=== PATIENT | male | born 1965 | race Caucasian/White ===

== ENCOUNTER 2018-06-17 08:01 | Outpatient (CLI) | payer OTHER, SELFPAY ==
[2018-06-17 08:37] LABS: Absolute Basophil Count 0.02 k/cumm (0.0-0.2); Absolute Eosinophil Count 0.07 k/cumm (0.0-0.7); Absolute Lymphocyte Count 1.02 k/cumm (1.2-3.4); Absolute Monocyte Count 0.33 k/cumm (0.11-0.7); Absolute Neutrophil Count 3.55 k/cumm (1.2-6.7); Basophils % 0.4; Eosinophils % 1.4; HCT 44.5 % (40.0-50.0); HGB 16.1 g/dL (13.5-17.5); Lymphocytes % 20.4; Mean Corp. HGB Concentration 36.2 g/dL (32.0-36.0); Mean Corpuscular Hemoglobin 33.1 pg (27.0-33.0); Mean Corpuscular Volume 91.6 fL (80-95); Mean Platelet Volume 9.1 fL (8.0-11.0); Monocytes % 6.6; Neutrophils % 71.2; Platelet Count 229 x1000/uL (130-400); RBC 4.86 m/cumm (4.50-6.00); RBC Distribution Width 12.1 % (11.8-14.1); White Blood Cell Count 4.99 k/cumm (4.4-10.8)
[2018-06-17 08:51] LABS: Hemoglobin A1C 5.1 % (4.5-6.2)
[2018-06-17 09:50] LABS: Iron 158 ug/dL (50-175)
[2018-06-17 10:19] LABS: ALT 25 U/L (12-78); AST 25 U/L (15-37); Alkaline Phosphatase 59 U/L (46-116); Anion Gap 7.1 mmol/L (3-11); BUN 20 mg/dL (7-18); Bilirubin, Total 0.8 mg/dL (0.2-1.0); CO2 29.9 mmol/L (21.0-32.0); CREATININE 1.24 mg/dL (0.70-1.30); Calcium 9.1 mg/dL (8.5-10.1); Chloride 105 mmol/L (98-107); Cholesterol 206 mg/dL (50-200); Glucose 92 mg/dL (70-100); HDL Cholesterol 46 mg/dL (40-60); LDL CHOLESTEROL 150 mg/dL (<100); Potassium 4.4 mmol/L (3.5-5.1); Sodium 142 mmol/L (136-145); TSH 2.86 uIU/mL (0.358-3.74); Total Protein 6.7 g/dL (6.4-8.2); Triglyceride 54 mg/dL (30-150); Vitamin B12 630 pg/mL (193-986)
[2018-06-18 03:20] LABS: CRP, High Sensitivity <0.10 mg/L
[2018-06-18 09:18] LABS: PSA, Screening 0.6 ng/ml (0-3.5)
[2018-06-18 09:43] LABS: Rheumatoid Factor <8 IU/mL (<12.5)
[2018-06-18 11:21] LABS: Homocysteine 12.9 umol/L (4.5-12.4)
[2018-06-18 14:46] LABS: ANA Interpretation Negative (NEGAT)
[2018-06-19 05:17] LABS: Vitamin D 25 Total 64.4 ng/ml (30-100)
[2018-06-19 11:58] LABS: Zinc, Serum 1.07 mcg/mL (0.66-1.10)
[2018-06-19 12:52] LABS: Copper, Serum 0.93 mcg/mL (0.75-1.45)
== END 2018-06-17 08:21 ==
PROVIDERS: Otolaryngology Otology & Neurotology; PCP Nurse Practitioner
DX: F41.9 Anxiety disorder, unspecified (principal); M25.50 Pain in unspecified joint; Z12.5 Encounter for screening for malignant neoplasm of prostate
CPT/HCPCS: 36415; 80053; 80061; 82306; 83090; 83721; 84153; 86141; 82525; 82607; 83036; 83540; 84443; 84630; 85025; 86038; 86431

== ENCOUNTER 2019-06-12 01:19 | Outpatient (CLI) | payer OTHER, SELFPAY ==
--- NOTE | 2019-06-12 08:09 | DI.RAD_ITS ---
EXAM: XR CERVICAL SPINE COMP 4-5V CLINICAL HISTORY: LT CERVICAL RADICULOPATHY,M54.12,LT NECK PAIN,M54.2 TECHNIQUE: COMPARISON: No exams were available for comparison FINDINGS: Six views were obtained. There is disc space narrowing at C5-6 and C6-7. There are hypertrophic valery nges involving the vertebral endplates at these levels. Minimal facet hypertrophic degenerative villa ges noted in the mid to lower cervical spine. Neural foramina appear well maintained. No evidence o f fracture. No facet dislocation. Prevertebral soft tissues appear intact. IMPRESSION: Degenerative changes most prominent at C5-6 and C6-7 as described above.
== END 2019-06-12 01:39 ==
PROVIDERS: PCP Nurse Practitioner; Visit Provider Internal Medicine
DX: M54.12 Radiculopathy, cervical region (principal); M54.2 Cervicalgia; M50.322 Other cervical disc degeneration at C5-C6 level; M50.323 Other cervical disc degeneration at C6-C7 level
CPT/HCPCS: 72050